=== PATIENT | male | born 1950 | race Hispanic/Latino ===

== ENCOUNTER 2017-08-21 14:30 | Inpatient (IN) | payer OTHER ==
[~2017-08-21] VITALS: Ht 174 cm; Wt 91.3 kg
[2017-08-21 15:18] VITALS: BP 117/72
[2017-08-21 15:27] LABS: APPEARANCE,URINE Clear (CLEAR); BILIRUBIN,URINE Negative (NEGATIVE); COLOR,URINE Yellow (YELLOW); GLUCOSE, URINE (UA) Negative (NEGATIVE); KETONES,URINE Negative (NEGATIVE); LEUKOCYTE ESTERASE ,URINE Negative (NEGATIVE); NITRATE,URINE Negative (NEGATIVE); OCCULT BLOOD,URINE Negative (NEGATIVE); PH,URINE 7.5 (5.0-8.0); PROTEIN,URINE Negative (NEGATIVE)
[2017-08-21] MEDS ORDERED: TAMS-1 PO (15:53)
[2017-08-21] MEDS ORDERED: MONT10TA24 PO (15:53)
[2017-08-21] MEDS ORDERED: HYDR-4060 PO (15:53)
[2017-08-21] MEDS ORDERED: PREG50 PO (15:53)
[2017-08-21] MEDS ORDERED: SULF500T8 PO (15:53)
[2017-08-21] MEDS ORDERED: FLUT15.815 NS (15:53)
[2017-08-21] MEDS ORDERED: MECL12.585 PO (15:53)
[2017-08-21] MEDS ORDERED: DULO60CA63 PO (15:53)
[2017-08-24] VITALS (22 sets, daily range): BP systolic 119–164; BP diastolic 62–98
[2017-08-24] MEDS ORDERED: LACTATED RINGERS 1000ML 1,000 ML IV ONE (06:50)
[2017-08-24] MEDS ORDERED: CEFAZOLIN SODIUM 1 GM VIAL ONE ×2 (06:50→07:18)
[2017-08-24] MEDS ORDERED: BUPIVACAINE/EPI/PF 0.25% 30ML VIAL IJ ONE (07:18)
[2017-08-24] MEDS ORDERED: TRANEXAMIC ACID 1000MG/10ML IV ONE (07:18)
[2017-08-24] MEDS ORDERED: DEXAMETHASONE SOD PHOSPHATE 10MG/ML 1ML VIAL ONE (07:40)
[2017-08-24] MEDS ORDERED: ONDANSETRON HCL 4 MG/2 ML VIAL ONE (07:40)
[2017-08-24] MEDS ORDERED: LIDOCAINE PF 2% 5ML ABBOJECT ONE (07:40)
[2017-08-24] MEDS ORDERED: GLYCOPYRROLATE 0.2 MG/ML 5 ML VIAL ONE (07:40)
[2017-08-24] MEDS ORDERED: SUCCINYLCHOLINE 200MG/10ML SYR ONE (07:40)
[2017-08-24] MEDS ORDERED: MIDAZOLAM HCL 1 MG/ML 2ML VIAL ONE (07:41)
[2017-08-24] MEDS ORDERED: PROPOFOL 10 MG/ML 20ML VIAL IV ONE (07:41)
[2017-08-24] MEDS ORDERED: FENTANYL CITRATE PF 50 MCG/1 ML 2ML VIAL ONE ×2 (07:41→08:50)
[2017-08-24] MEDS ORDERED: MORPHINE SULFATE 10 MG/ML 1ML SYG ONE (10:38)
[2017-08-24] MEDS ORDERED: DiphenhydrAMINE HCL 50 MG/ML VIAL IVP PRN (10:45)
[2017-08-24] MEDS ORDERED: OXYCODONE HCL 5 MG TAB PO PRN (10:45)
[2017-08-24] MEDS ORDERED: PROMETHAZINE HCL 25 MG/ML 1ML AMPULE IM PRN (10:45)
[2017-08-24] MEDS: ACETAMINOPHEN 325 MG TAB PO SCH ×3 (10:45→22:14)
[2017-08-24] MEDS ORDERED: FERROUS FUMARATE 324 MG TABLET PO PRN (10:45)
[2017-08-24] MEDS ORDERED: POTASSIUM CHLORIDE 20MEQ/100ML 100 ML IV PRN (10:45)
[2017-08-24] MEDS ORDERED: TEMAZEPAM 15 MG CAPSULE PO PRN (10:45)
[2017-08-24] MEDS ORDERED: TRAMADOL HCL 50 MG TABLET PO PRN (10:45)
[2017-08-24] MEDS ORDERED: POTASSIUM CHLORIDE 20 MEQ ERTAB PO PRN (10:45)
[2017-08-24] MEDS ORDERED: DIPHENHYDRAMINE HCL 25 MG CAPSULE PO PRN (10:45)
[2017-08-24] MEDS ORDERED: LIDOCAINE HCL-MPF 1% 2ML VIAL IVP PRN (10:45)
[2017-08-24] MEDS ORDERED: POTASSIUM CHLORIDE 10% ELIXIR 20 MEQ/15 ML UDCUP PO PRN (10:45)
[2017-08-24] MEDS ORDERED: MEPERIDINE-PF 50 MG/ML SYG ONE (11:25)
[2017-08-24] MEDS: PSYLLIUM SEED 1 EACH PACKET PO SCH (12:00)
[2017-08-24] MEDS ORDERED: MECLIZINE HCL 12.5 MG TABLET PO SCH (12:45)
[2017-08-24] MEDS: SODIUM CHLORIDE 0.9% 1000ML 1,000 ML IV SCH ×2 (12:54→23:57)
[2017-08-24] MEDS: KETOROLAC TROMETHAMINE 15MG/ML IV PRN ×2 (13:26→23:57)
[2017-08-24] MEDS ORDERED: CEFAZOLIN 2GM / 50 ML 50 ML IV SCH (15:45)
[2017-08-24] MEDS: CEFAZOLIN SODIUM 1 GM VIAL IVP SCH ×2 (16:13→23:58)
[2017-08-24] MEDS: ASPIRIN 325 MG TABLET PO SCH (22:13)
[2017-08-24] MEDS: MONTELUKAST SODIUM 10 MG TAB PO SCH (22:13)
[2017-08-24] MEDS: PREGABALIN 25 MG CAP PO SCH (22:13)
[2017-08-24] MEDS: FAMOTIDINE 20MG TAB 20 MG TAB PO SCH (22:13)
[2017-08-24] MEDS: OXYCODONE HCL 5 MG TAB PO PRN (22:14)
[2017-08-24] MEDS: CELECOXIB 200 MG CAP PO SCH (22:14)
[2017-08-24] MEDS: SULFASALAZINE 500 MG TAB.DR PO SCH (22:15)
[2017-08-24] MEDS: DULOXETINE HCL 30 MG CAP PO SCH (22:15)
[2017-08-25] VITALS: BP 128/79
[2017-08-25 04:00] VITALS: BP 118/73
[2017-08-25 04:47] LABS: HEMATOCRIT 34.6 % (42-54); MEAN CORPUSCULAR HGB CONC 34.7 g/dL (32.0-36.0); MEAN CORPUSCULAR VOLUME 95.1 fL (79-99); PLATELET COUNT (AUTO) 196 K/uL (130-400); RED BLOOD CELL COUNT(AUTO) 3.64 MIL/uL (4.50-6.20); RED CELL DISTRIBUTION WIDTH 12.9 % (11.0-15.5); WHITE BLOOD COUNT (AUTO) 9.1 K/uL (4.8-10.8)
[2017-08-25 05:02] LABS: CREATININE 1.1 mg/dL (0.5-1.5); POTASSIUM 4.1 mmol/L (3.5-5.1)
[2017-08-25] MEDS: ACETAMINOPHEN 325 MG TAB PO SCH ×4 (05:03→20:55)
[2017-08-25] MEDS: OXYCODONE HCL 5 MG TAB PO PRN ×2 (05:08→10:15)
[2017-08-25] MEDS: SODIUM CHLORIDE 0.9% 1000ML 1,000 ML IV SCH (06:36)
[2017-08-25] MEDS: POLYETHYLENE GLYCOL 3350 17 GM POWD.PACK PO SCH (08:15)
[2017-08-25] MEDS: KETOROLAC TROMETHAMINE 15MG/ML IV PRN ×2 (08:15→14:23)
[2017-08-25] MEDS: DULOXETINE HCL 30 MG CAP PO SCH ×2 (08:16→20:53)
[2017-08-25] MEDS: CELECOXIB 200 MG CAP PO SCH ×2 (08:16→20:53)
[2017-08-25] MEDS: ASPIRIN 325 MG TABLET PO SCH ×2 (08:16→20:53)
[2017-08-25] MEDS: PREGABALIN 25 MG CAP PO SCH ×2 (08:17→20:53)
[2017-08-25] MEDS: TAMSULOSIN HCL 0.4 MG CAP.ER.24H PO SCH ×2 (08:17)
[2017-08-25 08:20] VITALS: BP 132/83
[2017-08-25] MEDS: FLUTICASONE PROPIONATE 50MCG/SPRAY 16 GM BOTTLE EN SCH (10:13)
[2017-08-25] MEDS: SULFASALAZINE 500 MG TAB.DR PO SCH ×2 (10:14→20:53)
[2017-08-25] MEDS: FAMOTIDINE 20MG TAB 20 MG TAB PO SCH ×2 (10:14→20:53)
[2017-08-25] MEDS: CALCIUM CARBONATE 500 MG TABLET PO PRN ×2 (10:14→20:52)
[2017-08-25 11:42] VITALS: BP 143/86
[2017-08-25] MEDS: PSYLLIUM SEED 1 EACH PACKET PO SCH (11:53)
[2017-08-25 16:43] VITALS: BP 119/71
[2017-08-25 20:00] VITALS: BP 124/71
[2017-08-25] MEDS: MONTELUKAST SODIUM 10 MG TAB PO SCH (20:53)
[2017-08-26] VITALS: BP 122/75
[2017-08-26] MEDS: ACETAMINOPHEN 325 MG TAB PO SCH ×2 (03:20→10:25)
[2017-08-26 04:00] VITALS: BP 138/79
[2017-08-26 05:01] LABS: HEMATOCRIT 32.9 % (42-54); MEAN CORPUSCULAR HEMOGLOBIN 32.6 pg (27.0-33.0); MEAN CORPUSCULAR HGB CONC 34.4 g/dL (32.0-36.0); MEAN CORPUSCULAR VOLUME 94.9 fL (79-99); PLATELET COUNT (AUTO) 182 K/uL (130-400); RED BLOOD CELL COUNT(AUTO) 3.47 MIL/uL (4.50-6.20); RED CELL DISTRIBUTION WIDTH 13.1 % (11.0-15.5); WHITE BLOOD COUNT (AUTO) 7.7 K/uL (4.8-10.8)
[2017-08-26 05:07] LABS: POTASSIUM 4.1 mmol/L (3.5-5.1)
[2017-08-26 07:53] VITALS: BP 138/90
[2017-08-26] MEDS: POLYETHYLENE GLYCOL 3350 17 GM POWD.PACK PO SCH (09:03)
[2017-08-26] MEDS: PREGABALIN 25 MG CAP PO SCH (09:03)
[2017-08-26] MEDS: TAMSULOSIN HCL 0.4 MG CAP.ER.24H PO SCH ×2 (09:04→12:29)
[2017-08-26] MEDS: SULFASALAZINE 500 MG TAB.DR PO SCH (09:04)
[2017-08-26] MEDS: DULOXETINE HCL 30 MG CAP PO SCH (09:04)
[2017-08-26] MEDS: CELECOXIB 200 MG CAP PO SCH (09:04)
[2017-08-26] MEDS: FAMOTIDINE 20MG TAB 20 MG TAB PO SCH (09:04)
[2017-08-26] MEDS: ASPIRIN 325 MG TABLET PO SCH (09:04)
[2017-08-26] MEDS: OXYCODONE HCL 5 MG TAB PO PRN (09:07)
[2017-08-26] MEDS: FLUTICASONE PROPIONATE 50MCG/SPRAY 16 GM BOTTLE EN SCH (10:27)
[2017-08-26] MEDS ORDERED: BISACODYL 5 MG TABLET.DR PO PRN (10:45)
[2017-08-26 11:26] VITALS: BP 128/80
[2017-08-26] MEDS: PSYLLIUM SEED 1 EACH PACKET PO SCH (12:29)
[2017-08-26] MEDS ORDERED: ASPI-1012 PO (14:05)
[2017-08-26] MEDS ORDERED: HYDR-309 PO (14:05)
[2017-08-27] MEDS ORDERED: BISACODYL 10 MG SUPP.RECT RC PRN (10:45)
== END 2017-08-26 17:23 | disposition home health service (06) | DRG 470 ==
LOC: EDSTATUS 14:30 → DAHIP 08-24 06:30 → 4AH 08-24 11:47
PROVIDERS: ADMIT Orthopaedic Surgery; ATTEND Orthopaedic Surgery
PROC: 0SRC0JZ Replacement of Right Knee Joint with Synthetic Substitute, Open Approach (ICD-10-PCS; principal; 2017-08-24 09:14)
DX: M17.0 Bilateral primary osteoarthritis of knee (principal); G89.29 Other chronic pain; Z96.651 Presence of right artificial knee joint; Z28.21 Immunization not carried out because of patient refusal
CPT/HCPCS: 36415; 80048; 81003; 85027; 88304; 88311; A4218; C1713; J0330; J0690; J1100; J1885; J2001; J2175; J2250; J2270; J2405; J2704; J3010; J3490; J7030; J7120

== ENCOUNTER 2018-03-30 07:54 | Inpatient (IN) | payer OTHER ==
[2018-03-29 13:28] VITALS: BP 133/75
[2018-03-29 13:41] LABS: APPEARANCE,URINE Clear (CLEAR); BILIRUBIN,URINE Negative (NEGATIVE); COLOR,URINE Yellow (YELLOW); GLUCOSE, URINE (UA) Negative (NEGATIVE); KETONES,URINE Negative (NEGATIVE); LEUKOCYTE ESTERASE ,URINE Negative (NEGATIVE); NITRATE,URINE Negative (NEGATIVE); OCCULT BLOOD,URINE Negative (NEGATIVE); PH,URINE 5.5 (5.0-8.0); PROTEIN,URINE Negative (NEGATIVE); UROBILINOGEN,URINE 0.2 mg/dL (0.2-1.0)
[2018-03-30] VITALS (20 sets, daily range): BP systolic 114–170; BP diastolic 56–95
[~2018-03-30] VITALS: Ht 175.3 cm; Wt 92.4 kg
[~2018-03-30 07:54] MED LIST: CLON0.5T12 PO; DULO60CA63 PO; MONT10TA24 PO; RASA0.5T2 PO; TAMS-1 PO; TRAM50TA4 PO
[2018-03-30] MEDS ORDERED: LACTATED RINGERS 1000ML 1,000 ML IV ONE (08:39)
[2018-03-30] MEDS: CEFAZOLIN SODIUM 1 GM VIAL IVP SCH ×3 (09:00→18:06)
[2018-03-30] MEDS ORDERED: ONDANSETRON HCL 4 MG/2 ML VIAL ONE (09:37)
[2018-03-30] MEDS ORDERED: FENTANYL CITRATE PF 50 MCG/1 ML 2ML VIAL ONE (09:37)
[2018-03-30] MEDS ORDERED: ROPIVACAINE 0.5% 5MG/ML 30ML IJ ONE (09:37)
[2018-03-30] MEDS ORDERED: PROPOFOL 10 MG/ML 20ML VIAL IV ONE (09:37)
[2018-03-30] MEDS ORDERED: LIDOCAINE PF 2% 5ML ABBOJECT ONE (09:37)
[2018-03-30] MEDS ORDERED: MIDAZOLAM HCL 1 MG/ML 2ML VIAL ONE (09:38)
[2018-03-30] MEDS ORDERED: FAMOTIDINE/PF 20 MG/2 ML VIAL IV ONE (09:42)
[2018-03-30] MEDS ORDERED: TRANEXAMIC ACID 1000MG/10ML IV ONE (09:44)
[2018-03-30] MEDS ORDERED: CEFAZOLIN SODIUM 1 GM VIAL ONE (09:44)
[2018-03-30] MEDS ORDERED: KETOROLAC TROMETHAMINE 15MG/ML ONE (09:54)
[2018-03-30] MEDS ORDERED: CELECOXIB 200 MG CAP ONE (09:54)
[2018-03-30] MEDS ORDERED: ACETAMINOPHEN EXTRA STRENGTH 500 MG TABLET ONE (09:54)
[2018-03-30] MEDS ORDERED: METOCLOPRAMIDE 10 MG/2 ML VIAL ONE (09:54)
[2018-03-30] MEDS ORDERED: OXYCODONE HCL 10 MG TAB.SR.12H PO ONE (09:55)
[2018-03-30] MEDS ORDERED: VANCOMYCIN HCL 1 GM VIAL ONE (10:57)
[2018-03-30] MEDS: SODIUM CHLORIDE 0.9% 1000ML 1,000 ML IV SCH ×2 (12:07→23:23)
[2018-03-30] MEDS ORDERED: DiphenhydrAMINE HCL 50 MG/ML VIAL IVP PRN (12:15)
[2018-03-30] MEDS ORDERED: TEMAZEPAM 15 MG CAPSULE PO PRN (12:15)
[2018-03-30] MEDS ORDERED: POTASSIUM CHLORIDE 20MEQ/100ML 100 ML IV PRN (12:15)
[2018-03-30] MEDS ORDERED: FERROUS FUMARATE 324 MG TABLET PO PRN (12:15)
[2018-03-30] MEDS ORDERED: OXYCODONE HCL 5 MG TAB PO PRN (12:15)
[2018-03-30] MEDS ORDERED: CALCIUM CARBONATE 500 MG TABLET PO PRN (12:15)
[2018-03-30] MEDS ORDERED: ONDANSETRON HCL 4 MG/2 ML VIAL IVP PRN (12:15)
[2018-03-30] MEDS ORDERED: TRAMADOL HCL 50 MG TABLET PO PRN (12:15)
[2018-03-30] MEDS ORDERED: POTASSIUM CHLORIDE 20 MEQ ERTAB PO PRN (12:15)
[2018-03-30] MEDS ORDERED: LIDOCAINE HCL-MPF 1% 2ML VIAL IVP PRN (12:15)
[2018-03-30] MEDS ORDERED: POTASSIUM CHLORIDE 10% ELIXIR 20 MEQ/15 ML UDCUP PO PRN (12:15)
[2018-03-30 12:55] LABS: SPECIMENTYPE,BODY FLUID SYNOVIAL
[2018-03-30 12:56] LABS: APPEARANCE BODY FLUID CLOUDY (CLEAR); COLOR,BODY FLUID RED (LT YELLOW); TOTAL VOLUME,BODY FLUID 1 mL
[2018-03-30 12:57] LABS: BODY FLUID RBC 140625 /cu. mm.; BODY FLUID WBC 394 /cu. mm.
[2018-03-30 13:11] LABS: BF LYMPHOCYTE 35 %; BF MESOTHELIAL 12 %; BF MONOCYTE 1 %
[2018-03-30] MEDS ORDERED: HYDROMORPHONE 1 MG/1 ML AMP ONE (13:18)
[2018-03-30] MEDS: ACETAMINOPHEN EXTRA STRENGTH 500 MG TABLET PO SCH ×2 (14:05→21:39)
[2018-03-30] MEDS ORDERED: HYDROMORPHONE PCA 10 MG/50 ML 50 ML IV SCH (14:15)
[2018-03-30] MEDS ORDERED: PREGABALIN 25 MG CAP PO SCH (21:00)
[2018-03-30] MEDS: CLONAZEPAM 0.5 MG TABLET PO SCH (21:39)
[2018-03-30] MEDS: FAMOTIDINE 20MG TAB 20 MG TAB PO SCH (21:39)
[2018-03-30] MEDS: ASPIRIN 325 MG TABLET PO SCH (21:39)
[2018-03-30] MEDS: MONTELUKAST SODIUM 10 MG TAB PO SCH (21:39)
[2018-03-30] MEDS: CELECOXIB 200 MG CAP PO SCH (21:39)
[2018-03-30] MEDS: DULOXETINE HCL 30 MG CAP PO SCH (21:39)
[2018-03-30] MEDS ORDERED: BENZOCAINE/MENTH/CETYLPYRD CL 1 EACH LOZENGE MM PRN (21:45)
[2018-03-30] MEDS ORDERED: BENZOCAINE/MENTH/CETYLPYRD CL 1 EACH LOZENGE MM ONE (21:46)
[2018-03-31] MEDS: CEFAZOLIN SODIUM 1 GM VIAL IVP SCH (01:17)
[2018-03-31] MEDS: ACETAMINOPHEN EXTRA STRENGTH 500 MG TABLET PO SCH ×3 (04:08→21:26)
[2018-03-31 04:30] VITALS: BP 145/93
[2018-03-31 04:52] LABS: HEMATOCRIT 35.6 % (42-54); MEAN CORPUSCULAR HEMOGLOBIN 31.6 pg (27.0-33.0); MEAN CORPUSCULAR HGB CONC 32.9 g/dL (32.0-36.0); PLATELET COUNT (AUTO) 150 K/uL (130-400); RED CELL DISTRIBUTION WIDTH 12.5 % (11.0-15.5); WHITE BLOOD COUNT (AUTO) 9.2 K/uL (4.8-10.8)
[2018-03-31 05:06] LABS: CREATININE 1.1 mg/dL (0.5-1.5); POTASSIUM 4.2 mmol/L (3.5-5.1)
[2018-03-31 07:27] VITALS: BP_SYST 101; BP_SYST 187; BP_DIAS 100; BP_DIAS 57
[2018-03-31] MEDS: CELECOXIB 200 MG CAP PO SCH ×2 (08:03→21:26)
[2018-03-31] MEDS: ASPIRIN 325 MG TABLET PO SCH ×2 (08:03→21:25)
[2018-03-31] MEDS: TAMSULOSIN HCL 0.4 MG CAP.ER.24H PO SCH ×2 (08:04→08:10)
[2018-03-31] MEDS: FAMOTIDINE 20MG TAB 20 MG TAB PO SCH ×2 (08:04→21:25)
[2018-03-31] MEDS: OXYCODONE HCL 5 MG TAB PO PRN ×2 (08:04→13:33)
[2018-03-31] MEDS: POLYETHYLENE GLYCOL 3350 17 GM POWD.PACK PO SCH (08:04)
[2018-03-31] MEDS: SODIUM CHLORIDE 0.9% 1000ML 1,000 ML IV SCH (08:07)
[2018-03-31] MEDS: DULOXETINE HCL 30 MG CAP PO SCH ×2 (08:09→21:26)
[2018-03-31] MEDS: KETOROLAC TROMETHAMINE 15MG/ML IV PRN ×2 (10:07→17:33)
[2018-03-31 11:16] VITALS: BP 156/91
[2018-03-31] MEDS: RASAGILINE MESYLATE 0.5 MG PO SCH (12:00)
[2018-03-31 16:00] VITALS: BP 150/89
[2018-03-31 20:30] VITALS: BP 112/64
[2018-03-31] MEDS: CLONAZEPAM 0.5 MG TABLET PO SCH (21:25)
[2018-03-31] MEDS: MONTELUKAST SODIUM 10 MG TAB PO SCH (21:25)
[2018-04-01] VITALS: BP 140/76
[2018-04-01] MEDS: ACETAMINOPHEN EXTRA STRENGTH 500 MG TABLET PO SCH ×2 (04:29→11:50)
[2018-04-01 05:01] VITALS: BP 142/85
[2018-04-01 07:25] VITALS: BP 128/74
[2018-04-01] MEDS: ASPIRIN 325 MG TABLET PO SCH (08:49)
[2018-04-01] MEDS: POLYETHYLENE GLYCOL 3350 17 GM POWD.PACK PO SCH (08:50)
[2018-04-01] MEDS: FAMOTIDINE 20MG TAB 20 MG TAB PO SCH (08:50)
[2018-04-01] MEDS: CELECOXIB 200 MG CAP PO SCH (08:50)
[2018-04-01] MEDS: DULOXETINE HCL 30 MG CAP PO SCH (08:50)
[2018-04-01] MEDS: OXYCODONE HCL 5 MG TAB PO PRN (08:51)
[2018-04-01] MEDS: TAMSULOSIN HCL 0.4 MG CAP.ER.24H PO SCH ×2 (08:57→11:49)
[2018-04-01 11:27] VITALS: BP 114/68
[2018-04-01] MEDS: RASAGILINE MESYLATE 0.5 MG PO SCH (11:50)
[2018-04-01 16:00] VITALS: BP 124/70
[2018-04-01] MEDS: KETOROLAC TROMETHAMINE 15MG/ML IV PRN (17:22)
[2018-04-01] MEDS ORDERED: HYDR-309 PO (18:47)
[2018-04-01] MEDS ORDERED: ASPI-1012 PO (18:47)
[2018-04-02] MEDS ORDERED: BISACODYL 10 MG SUPP.RECT RC PRN (12:15)
== END 2018-04-01 19:35 | disposition home health service (06) | DRG 470 ==
LOC: DAH 07:54 → OBSVTOIN 07:55 → DAHIP 07:55 → DAH 07:55 → 4AH 13:19
PROVIDERS: ADMIT Orthopaedic Surgery; ATTEND Orthopaedic Surgery
PROC: 0SRD0J9 Replacement of Left Knee Joint with Synthetic Substitute, Cemented, Open Approach (ICD-10-PCS; principal; 2018-03-30 09:59)
PROC: 3E0234Z Introduction of Serum, Toxoid and Vaccine into Muscle, Percutaneous Approach (ICD-10-PCS; 2018-04-01)
DX: M17.12 Unilateral primary osteoarthritis, left knee (principal); K21.9 Gastro-esophageal reflux disease without esophagitis; G20 Parkinson's disease; Z96.651 Presence of right artificial knee joint; G89.29 Other chronic pain; Z90.49 Acquired absence of other specified parts of digestive tract; Z23 Encounter for immunization
CPT/HCPCS: 36415; 80048; 81003; 85027; 87070; 87076; 87205; 88305; 88311; 89051; A4218; J0690; J1170; J1885; J2001; J2250; J2405; J2704; J2765; J2795; J3010; J3370; J3490; J7030; J7120; Q2038